=== PATIENT | male | born 1960 | race African-American/Black ===

== ENCOUNTER → 2016-09-05 | Day surgery (SDC) | payer OTHER ==
[~2016-09-05] MED LIST: FLEXERIL PO; LORTAB 10-5001 EACH PO; VICODIN 5/500 T1 TAB PO
--- NOTE | ~2016-09-05 | OR ---
Unit #: [id number] #: [id number] Patient: KISHOR THORNE [id number] [address] [place], [place] [address] [id number] O MR#: [id number] NAME: KISHOR THORNE ROOM: Date of Procedure: 09/05/2016 Admission Date: 09/05/2016 Surgeon: Yoni Adrian M.D. : 1960 Attending Physician: Yoni Adrian M.D. Referring Physician: Yoni Adrian M.D. Primary Care Physician: [facility] OPERATIVE REPORT PROCEDURE PERFORMED Colonoscopy with snare polypectomy and colonoscopy with biopsy. INDICATIONS FOR PROCEDURE The patient with average risk for colorectal cancer. MEDICATIONS Monitored anesthesia. POSTOPERATIVE FINDINGS 1. Significant inflammation appears to have chronic colitis in ascending colon and cecal area with multiple raised areas and biopsies taken from the cecum and ascending colon separately. 2. Terminal ileum could not be intubated. 3. Large polyp at least 2 cm multilobe, snared piecemeal and sent for histopathology. 4. Multiple polyps that appeared to be pseudopolyps in ascending colon, were sent separately for histopathology. 5. Transverse colon, descending, sigmoid, and rectum appeared to be normal without any polyps or evidence of any chronic inflammation. 6. Internal hemorrhoids. PLAN Follow up on pathology report. Further recommendations to follow. DESCRIPTION OF PROCEDURE The patient was explained of the procedure, risks, and benefits along with risks and benefits of anesthesia. He was brought to the endoscopy room. Propofol anesthesia was given. Rectal exam was done, which was normal. Colonoscope was lubricated, passed up the rectum, advanced under direct vision all the way to the cecum. Terminal ileum could not be intubated. Findings in ascending and cecum were very concerning for chronic colitis with pseudopolyps and large polyps. Findings have been described in detail above. I continued to pull the scope out. Rest of the colonic mucosa was normal. I retroflexed in the rectum, small hemorrhoids seen. Gently, the scope was pulled out. He tolerated it well. Dictated by... Yoni Adrian M.D. [facility]/genl Unit #: [id number] #: [id number] Patient: KISHOR THORNE TD: 09/05/2016 18:40 JOB #: [id number] CC: Fredo Cheng M.D. OPERATIVE REPORT Page 1 of 1 X Yoni Adrian MD PROCEDURE OPERATIVE NOTE
== END | disposition home or self-care (01) ==
LOC: COPS 09-03 11:30
DX: Z12.11 Encounter for screening for malignant neoplasm of colon (principal); K52.9 Noninfective gastroenteritis and colitis, unspecified; K63.89 Other specified diseases of intestine; K62.89 Other specified diseases of anus and rectum; K64.8 Other hemorrhoids; Z98.890 Other specified postprocedural states
CPT/HCPCS: 88305

== ENCOUNTER → 2016-10-17 | Outpatient (CLI) | payer OTHER ==
--- NOTE | ~2016-10-17 | CR236 ---
[facility] A Service of [facility] & [facility] RADIOLOGY TEXT RESULTS PATIENT: KISHOR THORNE LOCATION: [facility] : 62 UNIT #: [id number] AGE: [address]: Yoni Adrian MD SEX: M ORDER DR: [id number] [facility] [address]. [place], [place] [address] [id number] O MR#: [id number] Acc #: [id number] NAME: KISHOR THORNE : 1960 SEX: M STUDY DATE/TIME: 10/17/2016 12:16 UNIT: [facility] ROOM: STUDY DESCRIPTION: CR Small Bowel Sbft W Films Attending Physician: Yoni Adrian M.D. Referring Physician: Yoni Adrian M.D. Ordering Physician: Yoni Adrian M.D. Primary Care Physician: Primary Care Physician No MEDICAL IMAGING REPORT This report is preliminary unless electronic signature is present EXAM Small bowel follow-through INDICATIONS Crohn disease. No comparisons are available. The fluoroscopy time is 0.5 minutes. 2 spot fluoroscopic images were taken. FINDINGS The small bowel transit time is normal. There are no dilated loops of bowel. No abnormal fold thickening. Spot images of the terminal ileum are within normal limits. IMPRESSION Normal small bowel follow-through Dictated by... Ryan Anderson M.D. THIS IS AN ELECTRONICALLY VERIFIED REPORT Ryan Anderson M.D. at 10/22/2016 11:21 AM SHITAL/helen TD: 10/18/2016 01:29 JOB #: [id number] MEDICAL IMAGING REPORT Page 1 of 1 COPY
[2016-10-17 10:36] LABS: HEMATOCRIT 43.7 % (38.0-50.0); HEMOGLOBIN 14.4 gm/dL (13.0-16.0); MEAN CELL VOLUME 88.6 FL (83-96); MEAN CORPUSCULAR HEMOGLOBIN 29.3 PG (28-34); MEAN PLATELET VOLUME 7.6 FL (6.5-11.5); RED BLOOD COUNT 4.93 X10e (3.90-5.60); RED CELL DISTRIBUTION WIDTH 14.5 % (11.0-15.5); WHITE BLOOD COUNT 6.8 X10e3 (4.0-10.5)
[2016-10-17 11:17] LABS: ALBUMIN SERUM 3.8 g/dL (3.5-5.0); BILIRUBIN,TOTAL 0.9 mg/dL (0.2-2.0); CALCIUM SERUM 9.2 mg/dL (8.4-10.2); CREATININE SERUM 0.8 mg/dL (0.6-1.4); GLOM FILT RATE Estimated 117.4 mL/min (>60); POTASSIUM 3.9 mmol/L (3.5-5.1); PROTEIN TOTAL SERUM 7.5 g/dL (6.0-8.3)
== END | disposition home or self-care (01) ==
LOC: CRAD 10:01
PROVIDERS: Internal Medicine
DX: K50.90 Crohn's disease, unspecified, without complications (principal)
CPT/HCPCS: 36415; 74250; 80053; 85027; 86140